=== PATIENT | male | born 1965 | race Two or more races ===

== ENCOUNTER 2020-09-20 08:12 | Day surgery (SDC) | payer OTHER ==
[~2020-09-20 08:12] MED LIST: AMBIEN10 MG PO; BISACODYL5 MG PO; DURAGESIC1 EAC1; ELIQUIS5 MG PO; GABAPENTIN800 M1 PO; LIPITOR20 MG PO; LOSARTAN-HCTZ1 EAC1 PO; METOPROLOL-HCT1 EACH PO; MOBIC7.5 MG PO; PERCOCET 10-321 EACH PO; TROMBONEX CAPS1 EACH PO
== END 2020-09-20 15:48 | disposition home or self-care (01) ==
LOC: CIR.AMB 08:12
PROVIDERS: ATTEND Orthopaedic Surgery Sports Medicine
DX: S83.241A Other tear of medial meniscus, current injury, right knee, initial encounter (principal); M67.51 Plica syndrome, right knee; M94.261 Chondromalacia, right knee; Z20.822 Contact with and (suspected) exposure to COVID-19